=== PATIENT | female | born 1985 | race Caucasian/White ===

== ENCOUNTER 2017-05-19 18:20 | Emergency (ER) | payer OTHER ==
[~2017-05-19] VITALS: Ht 175.3 cm; Wt 86.2 kg
[2017-05-19] MEDS ORDERED: LIDOCAINE 2% 20 ML VIAL. IJ ONE (19:00)
[2017-05-19] MEDS ORDERED: DIPHTH,PERTUSS(ACELL),TET TOX 0.5 ML DISP.SYRIN. VAX IM ONE (19:00)
[2017-05-19] MEDS ORDERED: cefTRIAXone IM 1 GM VIAL IM ONE (19:00)
[2017-05-19 19:13] VITALS: BP 132/80
--- NOTE | 2017-05-19 19:51 | PHYS DOC ---
General Chief Complaint: LACERATION/AVULSION Stated Complaint: HAND LACERATION Time Seen by MD: 18:29 Source: patient Exam Limitations: no limitations Problems: History of Present Illness Initial Comments Patient is a 32-year-old female who comes with a worker's compensation left third finger laceration. 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 She says bleeding was profuse initially and they used linens to apply pressure. Patient complains of pain at the laceration site initially which has somewhat resolved, states it is currently tolerable. She has no range of motion deficits with flexor or extensor tendon complexes she does complain of some numbness and tingling distal to the laceration at the anterior left third finger. She denies any pulsatile bleeding tetanus is not up- to-date and denies any other symptoms. Onset: just prior to arrival Severity: moderate Pain/Injury Location: left 3rd finger Method of Injury: incised Modifying Factors: worse with jarring, worse with movement, improves with rest Allergies: Coded Allergies: codeine (Verified Allergy, Mild, 05/19/17) Past Medical History Medical History: no pertinent history Surgical History: noncontributory Social History Smoker: cigarettes Alcohol: occasionally Drugs: none Review of Systems Constitutional: denies chills, denies diaphoresis, denies fever Respiratory: denies cough, denies shortness of breath Cardiovascular: denies chest pain, denies palpitations Gastrointestinal: denies nausea, denies vomiting Musculoskeletal: see HPI, denies back pain, denies joint pain, denies joint swelling, denies neck pain Skin: see HPI Psychiatric/Neurological: see HPI Physical Exam General Appearance: WD/WN, mild distress Neck: non-tender, supple Cardiovascular/Respiratory: normal peripheral pulses, normal breath sounds, no respiratory distress Elbow/Forearm: normal inspection, non-tender, no evidence of injury Wrist: normal inspection, non-tender, no evidence of injury Hand: laceration (see procedure note) Neurologic/Tendon: normal sensation (numbness and tingling at the anterior aspect of the left third finger distal to the laceration), normal motor functions, normal tendon functions, responds to pain, no evidence tendon injury Psychiatric: alert, oriented x 3 Skin: warm/dry (laceration as described above) Laceration/Wound Repair Laceration/Wound Repair : Wound Location: upper extremity (anterior aspect of the proximal phalanx left third finger) Wound's Depth, Shape: into muscle, linear Wound Length (cm): 2 Wound Explored: clean Irrigated w/ Saline (ccs): 100 Betadine Prep?: Yes Anesthesia: 1% Lidocaine (digital block) Volume Anesthetic (ccs): 6 Wound Debrided: minimal Wound Repaired With: sutures Suture Size/Type: 4:0, nylon Number of Sutures: 5 Layer Closure?: No Sterile Dressing Applied?: Yes Splint Applied?: Yes Type of Splint Applied: metal finger splint Sling Applied?: No Progress Informed consent obtained. After the wound was soaked in Betasept for 15 minutes analgesia was obtained with digital block using 2% lidocaine without epinephrine. The wound was then cleansed again with Betadine and irrigated with normal saline. 5 4-0 Ethilon sutures with good wound edge approximation. Patient tolerated the procedure well there were no complications wound care was discussed verbally and in written format see departure instructions. Orders, Labs, Meds No new or progressive symptoms throughout the ED course. I discussed signs and symptoms to monitor as well as indications for urgent return to the department. I discussed wound care and pain management as well as work restrictions. The patient's questions were answered to her satisfaction she received Rocephin 1 g intramuscularly as well as tetanus vaccination she expressed agreement and understanding of the treatment plan. Departure Time of Disposition: 19:48 Disposition: 01 HOME, SELF-CARE Diagnosis: work comp left third finger laceration 2 cm Condition: IMPROVED Patient Instructions: Laceration Care, Adult, [id number] Additional Instructions: You received tetanus vaccination and Rocephin 1 g intramuscularly in the emergency department. Wija-los-hicpaly Tylenol and ibuprofen as needed. Keep wound covered with sterile dressing until completely healed. No use of left hand until cleared by doctor. Use the metal finger splint for at least the next 5 days. Keep dry for 48 hours, after 48 hours may wash briefly twice daily with soap and warm water, blot dry. Change dressing after each wash, allow the wound to air dry 1 hour daily. Follow-up to this ED or with your doctor in 10 days for wound check and suture removal. Return to ED with new or changing symptoms. CITLALI PEREIRA DO May 19, 2017 19:51
== END 2017-05-19 20:05 | disposition home or self-care (01) ==
LOC: ER 18:20
DX: S61.213A Laceration without foreign body of left middle finger without damage to nail, initial encounter (principal); F17.210 Nicotine dependence, cigarettes, uncomplicated; Z88.5 Allergy status to narcotic agent; W45.8XXA Other foreign body or object entering through skin, initial encounter; Y93.89 Activity, other specified; Y99.0 Civilian activity done for income or pay; Y92.89 Other specified places as the place of occurrence of the external cause
CPT/HCPCS: 12001; 90471; 90715; 96372; 99284; J0696; J2001

== ENCOUNTER 2017-05-29 11:15 | Emergency (ER) | payer OTHER ==
[~2017-05-29] VITALS: Ht 175.3 cm; Wt 86.2 kg
[2017-05-29 11:15] VITALS: BP 134/80
--- NOTE | 2017-05-29 11:39 | PHYS DOC ---
Past History Past Medical History: No Pertinent History Past Surgical History: No Surgical History Alcohol Use: Occasionally Drug Use: Marijuana Adult General Chief Complaint Chief Complaint: SUTURE/STAPLE REMOVAL HPI HPI Patient is a 32-year-old female presenting to the emergency department to get her sutures taken out. She cut her left middle finger on the volar aspect and had paresthesias and numbness at the time of injury and says that she continues to have numbness distal to her laceration. She has intact motor and there is no significant swelling erythema drainage or complications as far as infection goes. She has not seen anyone as far as pain specialist. Review of Systems Review of Systems Constitutional: Denies fever or chills [] Neurologic: Denies focal weakness. + sensory changes [] All other systems were reviewed and found to be within normal limits, except as documented in this note. Allergies Allergies Allergies Coded Allergies Type Severity Reaction Last Updated Verified codeine Allergy Mild 05/19/17 Yes Physical Exam Physical Exam Constitutional: Well developed, well nourished, no acute distress, non-toxic appearance. [] Extremities: Sutures in place and wound is clean dry and intact with no redness or drainage Neurologic: Alert and oriented X 3, 5 out of 5 strength in her left index finger but she has numbness to the volar lateral aspect of her middle finger. EKG EKG [] Radiology/Procedures Radiology/Procedures [] Course & Med Decision Making Course & Med Decision Making Sutures removed with no complications but she does have a neurapraxia that may or may not get better. I told her that she should follow with a hand specialist to see if there is any new treatments or anything available for her to try and get function back in her finger. Patient aware and agreeable with plan and verbalized understanding of the above instructions. Dragon Disclaimer Dragon Disclaimer This electronic medical record was generated, in whole or in part, using a voice recognition dictation system. Departure Departure: Impression: Primary Impression: Visit for suture removal Additional Impression: Neuropraxia of upper extremity Disposition: HOME, SELF-CARE Condition: STABLE Referrals: PCP,NO (PCP) Patient Instructions: Suture Removal Problem Qualifiers ISSAC CONLEY DO May 29, 2017 11:39
== END 2017-05-29 11:55 | disposition home or self-care (01) ==
LOC: ER 11:15
DX: S64.493A Injury of digital nerve of left middle finger, initial encounter (principal); S61.213D Laceration without foreign body of left middle finger without damage to nail, subsequent encounter; F12.10 Cannabis abuse, uncomplicated; Z88.5 Allergy status to narcotic agent; X58.XXXA Exposure to other specified factors, initial encounter; Y93.89 Activity, other specified; Y92.89 Other specified places as the place of occurrence of the external cause; Y99.8 Other external cause status
CPT/HCPCS: 99282